=== PATIENT | female | born 1955 | race African-American/Black ===

== ENCOUNTER 2020-08-04 11:05 | Outpatient (CLI) | payer OTHER ==
[2020-08-04 14:22] LABS: Hemoglobin 11.6 g/dL (12.0-15.5); Mean Corpuscular HGB CONC 31.6 g/dL (32.0-36.0); Mean Corpuscular Hemoglobin 31.6 pg (27.0-33.0); Mean Platelet Volume 12.4 fl (7.4-10.4); Platelet Count 239 10x3/uL (150-450); RBC Distribution Width 13.6 % (11.5-14.5); Red Blood Cell (RBC) Count 3.67 10x6/uL (3.90-5.03); White Blood Cell (WBC) Count 6.9 10x3/uL (3.5-10.5)
[2020-08-04 14:34] LABS: Anion Gap 14 mmol/L (10-20); BUN (Urea Nitrogen) 16 mg/dL (9.8-20.1); Calc. Creatinine Clearance 0 mL/min (70-130); Carbon Dioxide 25 mmol/L (23-31); Chloride 105 mmol/L (98-107); Glucose 130 mg/dL (80-115); Potassium 4.4 mmol/L (3.5-5.1); Sodium 140 mmol/L (136-145)
[2020-08-05 01:00] LABS: SARS-CoV-2 PCR by NAA Not Detected (NotDetected)
== END 2020-08-04 11:06 | disposition home or self-care (01) ==
LOC: LABBT 11:05
PROVIDERS: ATTEND Neurological Surgery
DX: Z01.818 Encounter for other preprocedural examination (principal); M54.12 Radiculopathy, cervical region; Z20.822 Contact with and (suspected) exposure to COVID-19
CPT/HCPCS: 80048; 85027; 87635; 93005; 93010; U0003; U0005

== ENCOUNTER 2020-08-09 06:21 | Observation (INO) | payer OTHER ==
[2020-08-09] MEDS ORDERED: Fentanyl 100 MCG/2 ML VIAL ONE ×3 (06:53→12:07)
[2020-08-09] MEDS ORDERED: Midazolam HCl 2 mg/2 ml Vial ONE (06:53)
[2020-08-09] MEDS ORDERED: Metoclopramide HCl 10 MG/2 ML VIAL ONE (08:27)
[2020-08-09] MEDS ORDERED: Esmolol 100 MG/10 ML VIAL ONE (08:27)
[2020-08-09] MEDS ORDERED: ePHEDrine Sulfate 50 MG/10 ML VIAL ONE (08:27)
[2020-08-09] MEDS ORDERED: PROPOFOL 200 MG/20 ML VIAL ONE (08:27)
[2020-08-09] MEDS ORDERED: Rocuronium Bromide 10 MG/ML (10ML VIAL) ONE (08:27)
[2020-08-09] MEDS ORDERED: PHENYLEPHRINE-NS 100 MCG/ML 10 ML SYRINGE ONE (08:27)
[2020-08-09] MEDS ORDERED: Ondansetron PF 4 MG/2 ML Vial ONE (08:27)
[2020-08-09] MEDS ORDERED: Glycopyrrolate 0.2 MG/ML 5 ML SYRINGE ONE (08:27)
[2020-08-09] MEDS ORDERED: Lidocaine 1% PF 5 ML VIAL ONE (08:27)
[2020-08-09] MEDS ORDERED: SUGAMMADEX SODIUM 200 MG/2 ML VIAL ONE (09:36)
[2020-08-09] MEDS ORDERED: Ketorolac Tromethamine 30 MG/ML VIAL ONE (10:03)
[2020-08-09] MEDS ORDERED: Ketorolac Tromethamine 30 MG/ML VIAL IVP PRN (10:04)
[2020-08-09] MEDS ORDERED: Promethazine HCl 25 MG/ML VIAL SLOW IVP PRN (10:04)
[2020-08-09] MEDS ORDERED: Ondansetron HCl/PF 4 MG/2 ML Vial IVP PRN (10:04)
[2020-08-09] MEDS ORDERED: HYDROmorphone 2 MG/ML VIAL SLOW IVP PRN (10:04)
[2020-08-09] MEDS ORDERED: Promethazine HCl 25 MG/ML VIAL IM PRN ×2 (10:04→16:30)
[2020-08-09] MEDS ORDERED: Tamsulosin HCl 0.4 MG CAP ONE (10:35)
[2020-08-09 15:14] VITALS: BMI 27.3
[2020-08-09] MEDS ORDERED: Morphine 4 MG/ML VIAL SLOW IVP PRN (16:27)
[2020-08-09] MEDS ORDERED: HYDROcodone/Acetaminophen 10/325 mg Tablet PO PRN ×2 (16:30)
[2020-08-09] MEDS ORDERED: tiZANidine HCl 4 MG TAB PO PRN (16:30)
[2020-08-09] MEDS ORDERED: diphenhydrAMINE 25 MG CAP PO PRN (16:30)
[2020-08-09] MEDS ORDERED: traMADol HCl 50 MG TAB PO PRN ×2 (16:30)
[2020-08-09] MEDS ORDERED: diphenhydrAMINE 50 MG/ML VIAL IVP PRN (16:30)
[2020-08-09] MEDS ORDERED: Promethazine 25 MG TAB PO PRN (16:30)
[2020-08-09] MEDS ORDERED: Promethazine HCl 12.5 MG SUPP PR PRN (16:30)
[2020-08-09] MEDS ORDERED: Mag-Al 1200 mg/1200 mg/30 ML UDCUP PO PRN (16:30)
[2020-08-09] MEDS ORDERED: metFORMIN 500 MG TAB PO SCH (17:00)
[2020-08-09] MEDS: CEFAZOLIN 2 GM in Premix Bag 1 BAG IVPB SCH ×2 (17:10→23:51)
[2020-08-09] MEDS: Sodium Chloride 0.9% 1,000 ML IV SCH (17:11)
[2020-08-10] MEDS: Morphine 4 MG/ML VIAL SLOW IVP PRN ×4 (00:01→18:50)
[2020-08-10] MEDS: Sodium Chloride 0.9% 1,000 ML IV SCH ×2 (00:30→19:17)
[2020-08-10] MEDS: Tamsulosin HCl 0.4 MG CAP PO SCH (04:57)
[2020-08-10 05:57] LABS: #Eosinphils 0.1 thou/uL (0.0-0.7); #Lymphocytes 2.6 thou/uL (1.20-3.40); #Monocytes 0.7 thou/uL (0.11-0.59); %Basophils 0.4 % (0.0-1.0); %Eosinophils 1.5 % (0.0-10.0); %Lymphocytes 30.5 % (21.0-51.0); %Monocytes 8.2 % (0.0-10.0); %Neutrophils 59.4 % (42.0-75.0); Hemoglobin 11.1 g/dL (12.0-16.0); Mean Corpuscular HGB CONC 31.7 g/dL (32.0-36.0); Mean Corpuscular Hemoglobin 31.7 pg (27.0-31.0); Mean Corpuscular Volume 99.9 fL (78.0-98.0); Platelet Count 255 thou/uL (130-400); Red Blood Cell (RBC) Count 3.51 mill/uL (4.20-5.40); White Blood Cell (WBC) Count 8.4 thou/uL (4.8-10.8)
[2020-08-10 06:01] LABS: Hemoglobin A1c 6.6 % (4.0-6.0)
[2020-08-10 06:17] LABS: Anion Gap 11 mmol/L (10-20); BUN (Urea Nitrogen) 7 mg/dL (9.8-20.1); Calc. Creatinine Clearance 91 mL/min (70-130); Carbon Dioxide 27 mmol/L (23-31); Chloride 103 mmol/L (98-107); Glucose 157 mg/dL (80-115); Potassium 4.1 mmol/L (3.5-5.1); Sodium 137 mmol/L (136-145)
[2020-08-10] MEDS: Glimepiride 4 MG TAB PO SCH ×4 (06:49→18:04)
[2020-08-10] MEDS ORDERED: Dexamethasone 4 mg/ml Vial SLOW IVP SCH (07:00)
[2020-08-10] MEDS: Famotidine 20 MG TAB PO SCH ×2 (08:38→20:04)
[2020-08-10] MEDS: metFORMIN 500 MG TAB PO SCH ×2 (08:39→18:04)
[2020-08-10] MEDS: Ketorolac Tromethamine 30 MG/ML VIAL IVP PRN ×2 (08:47→18:51)
[2020-08-10] MEDS ORDERED: Lisinopril 5 MG TAB PO SCH ×2 (09:00)
[2020-08-10] MEDS ORDERED: Alogliptin 25 MG TAB PO SCH ×2 (09:00)
[2020-08-10] MEDS ORDERED: Famotidine 20 MG TAB PO SCH (09:00)
[2020-08-10] MEDS: Milk Of Magnesia 30 ML UDCUP PO PRN (18:50)
[2020-08-11] MEDS: Milk Of Magnesia 30 ML UDCUP PO PRN (00:26)
[2020-08-11] MEDS: Ketorolac Tromethamine 30 MG/ML VIAL IVP PRN (00:32)
[2020-08-11 03:53] VITALS: BP 127/80; TEMP 98.4
[2020-08-11] MEDS: Tamsulosin HCl 0.4 MG CAP PO SCH (05:12)
== END 2020-08-11 06:38 | disposition home or self-care (01) ==
LOC: SDC 06:21 → SJJU 09:57
PROVIDERS: ADMIT Neurological Surgery; ATTEND Neurological Surgery
PROC: 0RG20A0 Fusion of 2 or more Cervical Vertebral Joints with Interbody Fusion Device, Anterior Approach, Anterior Column, Open Approach (ICD-10-PCS; principal; 2020-08-11)
PROC: 0RG2070 Fusion of 2 or more Cervical Vertebral Joints with Autologous Tissue Substitute, Anterior Approach, Anterior Column, Open Approach (ICD-10-PCS; 2020-08-11)
PROC: 0RT30ZZ Resection of Cervical Vertebral Disc, Open Approach (ICD-10-PCS; 2020-08-11)
DX: M47.22 Other spondylosis with radiculopathy, cervical region (principal); E11.9 Type 2 diabetes mellitus without complications; I10 Essential (primary) hypertension; H35.52 Pigmentary retinal dystrophy; M06.9 Rheumatoid arthritis, unspecified; E78.00 Pure hypercholesterolemia, unspecified; Z79.84 Long term (current) use of oral hypoglycemic drugs; Z79.899 Other long term (current) drug therapy
CPT/HCPCS: 36415; 36416; 76000; 80048; 83036; 85025; 93306; 96365; 96375; 96376; C1713; C1776; G0378; J0690; J1100; J1885; J2250; J2270; J2405; J2704; J2765; J3010; J3490

== ENCOUNTER 2020-08-25 13:44 | Outpatient (CLI) | payer MEDICARE, MEDICAID | END 2020-08-25 13:45 | disposition home or self-care (01) | LOC: TBSIIMAG 13:44 | PROVIDERS: ATTEND Neurological Surgery | DX: M54.12 Radiculopathy, cervical region (principal); Z98.890 Other specified postprocedural states | CPT/HCPCS: 72040 ==